=== PATIENT | male | born 1995 | race African-American/Black ===

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

== ENCOUNTER 2017-04-09 19:12 | Emergency (ER) | payer SELFPAY ==
[~2017-04-09] VITALS: Ht 172.7 cm; Wt 86.0 kg
[2017-04-09 22:38] LABS: CLARITY URINE TURBID (CLEAR); COLOR URINE DARK YELLOW (YELLOW); KETONES URINE 3+ (NEGATIVE); LEUKOCYTE ESTERASE URINE 3+ (NEGATIVE); NITRITE URINE NEGATIVE (NEGATIVE); OCCULT BLOOD URINE TRACE (NEGATIVE); PH URINE 6.5 (4.5-8.0); PROTEIN URINE 1+ (NEGATIVE)
[2017-04-10] MEDS ORDERED: SODIUM CHLORIDE 0.9% 1,000 ML IV ONE (01:11)
[2017-04-10] MEDS ORDERED: ONDANSETRON HCL 4MG/2ML VIAL IV ONE (01:15)
[2017-04-10] MEDS ORDERED: IPRATROPIUM/ALBUTEROL 0.5-3(2.5)MG/3ML NEB HHN ONE (01:15)
[2017-04-10] MEDS ORDERED: KETOROLAC 30MG/ML VIAL IV ONE (01:30)
[2017-04-10 01:42] LABS: BASOPHILS % 0.2 % (0.0-2.0); HEMATOCRIT. 45.1 % (42.0-52.0); HEMOGLOBIN. 15.3 g/dL (14.0-18.0); MEAN CORPUSCULAR HEMOGLOBIN 33.1 pg (28.0-32.0); MEAN CORPUSCULAR VOLUME 97.5 fL (80.0-94.0); MEAN PLATELET VOLUME 8.3 fl (7.4-10.4); MONOCYTES % 12.9 % (2.0-8.0); NEUTROPHILS % 67.9 % (40.0-76.0); PLATELET 244 x1000/uL (130-400); RED BLOOD CELL COUNT 4.63 mill/uL (4.7-6.1); RED CELL DISTRIBUTION WIDTH 12.5 % (11.6-14.6)
[2017-04-10 01:47] LABS: CHLORIDE 101 mEq/L (98-107)
[2017-04-10 01:51] LABS: INR 1.1
[2017-04-10 01:55] LABS: CARBON DIOXIDE 23 mEq/L (21-32)
[2017-04-10] MEDS ORDERED: CEFTRIAXONE SODIUM 250 MG/VIAL IM NR (02:45)
[2017-04-10] MEDS ORDERED: LIDOCAINE HCL 1% 20ML VIAL (Pyxis) INJ MC NR (02:45)
[2017-04-10 03:20] VITALS: BP 124/72
== END 2017-04-10 03:47 | disposition home or self-care (01) ==
LOC: ER 19:53
DX: J45.909 Unspecified asthma, uncomplicated (principal); E86.0 Dehydration; R11.2 Nausea with vomiting, unspecified; R07.9 Chest pain, unspecified; R05 Cough; R50.9 Fever, unspecified; A63.8 Other specified predominantly sexually transmitted diseases; F17.200 Nicotine dependence, unspecified, uncomplicated; F12.10 Cannabis abuse, uncomplicated
CPT/HCPCS: 36415; 80053; 81001; 85025; 85610; 87804; 94640; 96361; 96372; 96374; 96375; 99285; J0696; J1885; J2405; J3490; J7030; J7620; Z7610